=== PATIENT | male | born 1985 | race Caucasian/White ===

== ENCOUNTER 2019-12-30 09:23 | Emergency (ER) | payer OTHER, SELFPAY ==
--- NOTE | 2019-12-30 | ECG_ITS ---
Test Reason : HEADACHE Blood Pressure : / mmHG Vent. Rate : 069 BPM Atrial Rate : 069 BPM P-R Int : 148 ms QRS Dur : 098 ms QT Int : 392 ms P-R-T Axes : 046 -23 -08 degrees QTc Int : 420 ms Normal sinus rhythm Nonspecific T wave abnormality Abnormal ECG When compared with ECG of 24-JUL-2019 16:52, No significant change was found Referred By: Carrie Velásquez Electronically Signed By:MOLINA MULLINS MD
--- NOTE | 2019-12-30 09:43 | CT_ITS ---
EXAMINATION: CT HEAD WITHOUT CONTRAST CLINICAL INFORMATION: Headache for 2 weeks. Age 34. COMPARISON: CT head noncontrast 04/11/2012. TECHNIQUE: Contiguous axial imaging was performed from the skull base to vertex without intravenous administration of contrast. Additional 2-D coronal and sagittal reformatted images are generated on the CT workstation and uploaded to PACS. This CT examination was performed using dose optimization techniques as appropriate, variously including the following: *Automated exposure control *Adjustment of mA and/or kV according to patient size (this includes techniques or standardized protocols for targeted exams where dose is matched to indication/reason for exam; i.e. extremities or head) *Use of iterative reconstruction technique DLP: 825 mGy-cm FINDINGS: There is no intracranial hemorrhage, hematoma, or extra-axial fluid collection. The ventricles are normal in size. There is no hydrocephalus, edema, or mass effect. The lam-white matter differentiation appears symmetric. There is no visible acute territorial infarct or mass lesion. There are no significant changes from prior study 2012. The calvarium appears intact. There is no pneumocephalus or orbital emphysema. The visualized sinuses and middle ears and mastoid air cells show no significant mucosal thickening. There are no air-fluid levels. CT/CT head/brain wo con IMPRESSION: Normal study.
--- NOTE | 2019-12-30 09:50 | ED_ITS ---
HPI - Headache General Chief Complaint: Headache Stated Complaint: Migraine Time Seen by Provider: 12/30/19 09:39 Source: patient Mode of arrival: ambulatory Limitations: no limitations History of Present Illness HPI Narrative: Patient presents to ED for headache that has been occurring for the past 2 weeks. Patient states having history headaches ( migraines) since coming from the [place] 10 years ago. Patient states headache not improving with amitriptyline which he takes for his headache. Patient denies any neck stiffness, fever, chills, night sweats, loss of vision, or blurry vision. Patient denies any eye pain. Related Data Home Medications Medication Instructions Recorded Confirmed amitriptyline 10 mg PO BEDTIME 12/29/19 12/29/19 duloxetine 20 mg PO DAILY 12/29/19 12/29/19 famotidine 20 mg PO DAILY PRN 12/29/19 12/29/19 lactase [Lactaid] 3,000 unit PO TID PRN 12/29/19 12/29/19 Previous Rx's Medication Instructions Recorded [id number]-gpgcvqoxluxty-kvry 1 cap PO Q4-6H PRN #20 cap 12/30/19 [Fioricet] naproxen 500 mg PO BID PRN #20 tab 12/30/19 Allergies Allergy/AdvReac Type Severity Reaction Status Date / Time No Known Allergies Allergy Unverified 12/29/19 15:54 Review of Systems Review of Systems: Yes all other systems are reviewed and are negative Constitutional: Constitutional: Reports as per HPI, Reports no additional constitutional complaints and Reports headache(s) Eyes: Eyes: Reports as per HPI and Reports no additional eye complaints ENT: Reports system reviewed and no additional complaints, except as documented, Reports as per HPI and Reports headache(s) Cardiovascular: Cardiovascular: Reports as per HPI and Reports no additional cardiovascular complaints Respiratory: Respiratory: Reports as per HPI and Reports no additional respiratory complaints Gastrointestinal: Gastrointestinal: Reports as per HPI and Reports no additional gastrointestinal complaints Genitourinary: Genitourinary: Reports no additional male genitourinary complaints and Reports as per HPI Musculoskeletal: Musculoskeletal: Reports no additional musculoskeletal complaints and Reports as per HPI Neurologic: Reports system reviewed and no additional complaints, except as documented, Reports as per HPI and Reports headache(s) Psychiatric: Psychiatric: Reports no additional psychiatric complaints and Reports as per HPI [facility] Past Medical History Medical History (Updated 12/30/19 @ 13:04 by MARCE Boswell) Depression GERD (gastroesophageal reflux disease) IBS (irritable bowel syndrome) Lactose intolerance PTSD (post-traumatic stress disorder) Surgical History History of open reduction and internal fixation (ORIF) procedure Hx of appendectomy Hx of tonsillectomy Social History Social History Smoking Status: Former smoker Physical Exam Vital Signs: Vital Signs: Last Vital Signs Temp 98.3 F 12/30/19 10:43 Pulse 77 12/30/19 12:16 Resp 16 12/30/19 12:16 BP 112/73 12/30/19 12:16 Pulse Ox 95 12/30/19 12:16 Body Mass Index 41.5 Const: General: cooperative, healthy appearing, comfortable, no acute distress, well developed, alert and awake Orientation/consciousness: patient oriented x3 HENMT: Head: Yes normal to inspection, Yes No palpable skull fracture present, Yes atraumatic, No Carmona's sign, No contusion, No laceration, No palpable skull fracture, No raccoon eyes, No scalp lesion, No scalp tenderness and No Temporal artery tenderness present Eyes: Other: positive for photophobia. Neck: Neck: Yes normal visual inspection, Yes full ROM, Yes no lymphadenopathy, Yes no meningeal signs, Yes trachea midline and No tender Chest: Chest palpation & inspection: normal inspection of the chest, normal palpation of entire chest wall and no localized rib tenderness Resp: Effort & Inspection: normal respiratory effort and able to speak in complete sentences Auscultation: clear to auscultation bilaterally Cardio: Jugular venous distension: no JVD Heart sounds: S1 normal heart so und present and S2 normal heart sound present GI: Inspection: Yes normal to inspection and No abdominal wall ecchymosis Palpation (GI): Soft to palpation, not firm, nontender and no guarding : General: No CVA tenderness and Yes no CVA tenderness Back/Spine/Pelvis: Back: no CVA tenderness, No CVA tenderness and No back tenderness Skin: General skin exam: no rashes or lesions noted Neuro: General: patient oriented x3, no meningeal signs and CN's II-XI intact bilaterally Cranial nerves: Yes CN's II-XII intact bilaterally Extrem: General: Yes normal to inspection and Yes full ROM Psych: Appearance: grossly normal, well kempt and not disheveled Course Course Course Narrative: History physical exam indicates small a migraine exacerbation. With headache and photophobia. Negative for any neck stiffness, or meningeal signs to indicate meningitis. It has been occurring for the past 2 weeks. Will give Fioricet, Benadryl, Reglan, and IV fluids. Patient will be sent for head CT scan patient states pain is worse in the past 3 days. Reevaluation(s) Reevaluation #1: Patient head CT came back negative for any intracranial pathology. Patient headache and photophobia resolved after receiving migraine cocktail in the ED. History physical exam does not indicate meningitis. patient's vital signs are stable, no white blood cell count, and and patient is not toxic appearing. NO concern for aseptic meningitis, Due to headache resolving and patient denies history of HIV or herpes. Not suspecting with glaucoma Time: 13:00 Reevaluation #2: EKG was done on patient in error by medical staff. EKG was not indicated. I am not thinking patient have a cardiac event. But due to staff member performed EKG it was officially ordered. In comparison to prior EKG in July there was no EKG changes. No troponin indicated. Time: 13:01 MDM - Headache MDM Narrative Medical decision making narrative: migraine Lab Data Result diagrams: 12/30/19 10:56 12/30/19 10:56 Labs: Lab Results 12/30/19 12/30/19 12/30/19 Range/Units 10:56 10:56 10:56 WBC 9.2 (4.8-10.8) X10*3/uL RBC 4.73 (4.60-5.80) X10*6/uL Hgb 13.5 L (14.0-18.0) g/dl Hct 42.4 (42-52) % MCV 89.6 (80-98) fL MCH 28.5 (27.0-33.0) pg MCHC 31.8 (31.0-36.0) g/dl RDW 11.9 (11.0-16.0) % Plt Count 316 (160-400) X10*3/uL MPV 10.2 (9.4-12.4) fL Immature Gran % (Auto) 0.3 (0.0-0.4) % Neut % (Auto) 57.3 (45-73) % Lymph % (Auto) 30.5 (20-40) % [facility] % (Auto) 8.5 (2-11) % Eos % (Auto) 3.0 (0-4) % Baso % (Auto) 0.4 (0-2) % Lymph # (Auto) 2.8 (1.2-4.9) X10*3/uL [facility] # (Auto) 0.8 (0.1-1.2) X10*3/uL Eos # (Auto) 0.3 (0.0-0.4) X10*3/uL Baso # (Auto) 0.0 (0.0-0.2) X10*3/uL Abs Immat Gran (auto) 0.03 (0.00-0.03) X10*3/uL Absolute Neuts (auto) 5.3 (2.0-8.3) X10*3/uL Absolute Nucleated RBC 0.000 (0.0-0.012) X10*3/uL Nucleated RBC % (auto) 0.0 (0.0-0.2) /100WBC PT 12.3 (10.8-13.0) SEC INR 1.0 (0.9-1.1) APTT 39.0 H (24.1-38.0) SEC Sodium 135 (135-145) mmol/L Potassium 4.1 (3.3-5.1) mmol/l Chloride 102 (96-108) mmol/L Carbon Dioxide 25 (22-29) mmol/L Anion Gap 12 (12-20) BUN 13 (9-16) mg/dL Creatinine 1.07 (0.5-1.4) mg/dL Estim Creat Clear Calc 133.9 Estimated GFR > 60 Random Glucose 112 (60-115) mg/dL Calcium 9.2 (8.4-10.2) mg/dL Total Bilirubin 0.4 (0.0-1.0) mg/dL AST 16 (5-37) U/L ALT 21 (0-40) U/L Alkaline Phosphatase 75 (39-117) U/L Total Protein 7.3 (6.5-8.0) g/dL Albumin 4.1 (3.5-5.0) g/dL ECG Data Interpretation: normal sinus rhythm. Ventricular rate 69. Pr interval 148. QRS 98 Discharge Plan Discharge Clinical Impression: Migraine Patient Disposition: Home, Self-Care Instructions: Migraine Headache (ED) Additional Instructions: return to the ED immediately for worsening headache, neck stiffness, loss of vision, fever, chills, rash, slurred speech, loss of vision, paralysis, or any other concerning symptoms. Prescriptions: New jfrrajmcxl-lpqewqbrhxgpg-uiek [Fioricet] 50-300-40 mg capsule 1 cap PO Q4-6H PRN (Reason: pain) Qty: 20 RF: 0 naproxen 500 mg tablet 500 mg PO BID PRN (Reason: pain) Qty: 20 RF: 0 No Action famotidine 20 mg Tablet 20 mg PO DAILY PRN (Reason: Acid Reflux) RF: 0 amitriptyline 10 mg Tablet 10 mg PO BEDTIME RF: 0 lactase [Lactaid] 3,000 unit Tablet 3,000 unit PO TID PRN (Reason: Digestion) RF: 0 duloxetine 20 mg Capsule,Delayed Release(Dr/Ec) 20 mg PO DAILY RF: 0 Referrals: Tanya Cat MD [Primary Care Provider] - 2 days ( Migraine exacerbation.) Du Domingo MD [Physician] - 2 days ( migraine exacerbation.) Stand Alone Forms: Work/School Release Interventions: ED Discharge Assessment Last Done: 12/30/19 13:16 Discharge Date/Time: 12/30/19 13:20 Print Language: Mongolian
[2019-12-30 10:43] VITALS: BP 135/82; PULSE 81; RESP 20; TEMP 36.8; O2SAT 95; BMI 41.5
[2019-12-30] MEDS: 0.9 % Sodium Chloride 1,000 ML 999 ML IVCONT (10:57)
[2019-12-30] MEDS: diphenhydrAMINE HCL 50 MG/ML VIAL IVPUSH (10:58)
[2019-12-30] MEDS: Metoclopramide HCl 10 MG/2 ML VIAL IVPUSH (10:58)
[2019-12-30 11:00] LABS: MANUAL DIFF FLAG NO
[2019-12-30 11:02] LABS: Basophils Percent Auto 0.4 % (0-2); Eosinophils Absolute Auto 0.3 X10*3/uL (0.0-0.4); Hematocrit 42.4 % (42-52); Hemoglobin 13.5 g/dl (14.0-18.0); Imm Gran Abs Auto 0.03 X10*3/uL (0.00-0.03); Imm Gran Pct Auto 0.3 % (0.0-0.4); Lymphocytes Absolute Auto 2.8 X10*3/uL (1.2-4.9); Lymphocytes Percent Auto 30.5 % (20-40); Mean Corpuscular HGB Conc 31.8 g/dl (31.0-36.0); Mean Corpuscular Hemoglobin 28.5 pg (27.0-33.0); Mean Corpuscular Volume 89.6 fL (80-98); Mean Platelet Volume 10.2 fL (9.4-12.4); Monocytes Absolute Auto 0.8 X10*3/uL (0.1-1.2); Monocytes Percent Auto 8.5 % (2-11); Neutrophils Absolute Auto 5.3 X10*3/uL (2.0-8.3); Neutrophils Percent Auto 57.3 % (45-73); Platelet Count 316 X10*3/uL (160-400); Red Blood Count 4.73 X10*6/uL (4.60-5.80); Red Cell Distribution Width 11.9 % (11.0-16.0); White Blood Count 9.2 X10*3/uL (4.8-10.8)
[2019-12-30 11:06] LABS: Prothrombin Time 12.3 SEC (10.8-13.0)
[2019-12-30] MEDS: Ketorolac Tromethamine 30 MG/ML VIAL IVPUSH (11:21)
[2019-12-30 11:40] LABS: Alanine Aminotransferase 21 U/L (0-40); Albumin Level 4.1 g/dL (3.5-5.0); Alkaline Phosphatase 75 U/L (39-117); Anion Gap 12 (12-20); Aspartate Amino Transferase 16 U/L (5-37); Bilirubin Total 0.4 mg/dL (0.0-1.0); Blood Urea Nitrogen 13 mg/dL (9-16); Calcium 9.2 mg/dL (8.4-10.2); Carbon Dioxide 25 mmol/L (22-29); Chloride 102 mmol/L (96-108); Creatinine Clr Calc Pharmacy 133.9; Estimated Glomerular Filt Rate > 60; Glucose Random 112 mg/dL (60-115); Potassium 4.1 mmol/l (3.3-5.1); Sodium 135 mmol/L (135-145); Total Protein 7.3 g/dL (6.5-8.0)
[2019-12-30 12:16] VITALS: BP 112/73; PULSE 77; RESP 16; O2SAT 95
== END 2019-12-30 13:20 | disposition home or self-care (01) ==
PROVIDERS: Physician Assistant; Emergency Provider Emergency Medicine; PCP Internal Medicine
DX: G43.909 Migraine, unspecified, not intractable, without status migrainosus (principal); Z79.899 Other long term (current) drug therapy
CPT/HCPCS: 36415; 70450; 80053; 85025; 85610; 85730; 93005; 96361; 96374; 96375; 99284; J1200; J1885; J2765

== ENCOUNTER 2019-12-31 10:12 | Outpatient (REF) | payer OTHER, SELFPAY ==
--- NOTE | 2019-12-31 10:30 | MR_ITS ---
MRI OF THE BRAIN WITHOUT IV CONTRAST INDICATION: Severe constant headache. COMPARISON: Head CT 12/30/2019. TECHNIQUE: Multiplanar multisequence MR imaging of the brain was obtained without IV contrast. FINDINGS: There is no hydrocephalus, extra-axial surface collection, or herniation. No parenchymal signal abnormality. The major flow voids at the skull base are preserved. There is no acute infarct on diffusion-weighted imaging. There is no intracranial hemorrhage on the gradient recalled echo acquisition. The midline structures are normal. The cerebellar tonsils are normally positioned. The cerebellum and brainstem are normal. The craniocervical junction is normal. Osseous marrow signal intensity is homogenous. The visualized soft tissues are unremarkable. There are retention cysts within the maxillary sinuses bilaterally and there is mild mucosal thickening throughout the ethmoid air cells bilaterally. MR/MR head/brain wo con IMPRESSION: Unremarkable noncontrast MRI of the brain.
== END 2019-12-31 10:13 | disposition home or self-care (01) ==
LOC: HO.MRI 10:12
PROVIDERS: Visit Provider Internal Medicine
DX: R51.9 Headache, unspecified (principal)
CPT/HCPCS: 70551

== ENCOUNTER 2019-12-31 11:25 | Outpatient (REF) | payer OTHER, SELFPAY ==
[2019-12-31 14:28] LABS: Alanine Aminotransferase 23 U/L (0-40); Albumin Level 4.2 g/dL (3.5-5.0); Alkaline Phosphatase 70 U/L (39-117); Amylase 71 U/L (28-100); Aspartate Amino Transferase 17 U/L (5-37); Bilirubin Direct < 0.2 mg/dL (0.0-0.5); Bilirubin Total 0.6 mg/dL (0.0-1.0); Total Protein 7.5 g/dL (6.5-8.0)
[2019-12-31 14:52] LABS: T4 Thyroxine 7.2 ug/dL (4.5-12.0); Thyroid Stimulating Hormone 1.41 uIU/mL (0.32-4.0)
[2020-01-01 13:01] LABS: Transglutaminase Ab IgG 3 U/mL; Transglutaminase IgA 1 U/mL
[2020-01-01 22:03] LABS: Immunoglobulin A 402 mg/dL (47-310)
[2020-01-01 22:22] LABS: Gliadin Deamidated IgA Ab 5 Units; Gliadin Deamidated IgG Ab 6 Units
[2020-01-05 13:57] LABS: Endomysial IgA Antibody Negative (Negative)
== END 2019-12-31 11:26 | disposition home or self-care (01) ==
LOC: HO.10HDL 11:25
PROVIDERS: Visit Provider Internal Medicine
DX: R19.7 Diarrhea, unspecified (principal); K21.9 Gastro-esophageal reflux disease without esophagitis; R10.9 Unspecified abdominal pain
CPT/HCPCS: 36415; 80076; 82150; 82784; 83516; 84436; 84443; 86255; 86256

== ENCOUNTER 2020-01-04 10:25 | Day surgery (SDC) | payer OTHER, SELFPAY ==
[2019-12-29 16:01] VITALS: BMI 41.5
--- NOTE | 2019-12-31 15:37 | HO.ANESPROP2 ---
Documented by User: Leyla Boo 12/31/19 15:38 HPI - Anesthesia Eval Consult details Narrative: 34yp M for Upper Endoscopy and Colonoscopy [facility] Past Medical History Medical History Depression GERD (gastroesophageal reflux disease) IBS (irritable bowel syndrome) Lactose intolerance PTSD (post-traumatic stress disorder) Surgical History Surgical History History of open reduction and internal fixation (ORIF) procedure Hx of appendectomy Hx of tonsillectomy Social History Social History Are you a primary post acute care registered nurse to a significant other at home: No Do you presently have visiting nurse or other home services: No Smoking Status: Former smoker Smoking Quit Date: 5 yrs ago Use of substances other than those prescribed or required for medical reasons: No Have you been hit, kicked, punched, or otherwise hurt by someone within the past year? If so, by whom?: No Advance Directives: No Advance Directives Information Provided: No Advance Directives on File: No Recently lost weight without trying: No Meds Allergies Allergy/AdvReac Type Severity Reaction Status Date / Time No Known Allergies Allergy Unverified 12/29/19 15:54 Home Medications Medication Instructions Recorded Confirmed Type amitriptyline 10 mg PO BEDTIME 12/29/19 12/29/19 History duloxetine 20 mg PO DAILY 12/29/19 12/29/19 History famotidine 20 mg PO DAILY PRN 12/29/19 12/29/19 History lactase [Lactaid] 3,000 unit PO TID PRN 12/29/19 12/29/19 History Exam Exam Date and Time: December 31, 2019 1537 Height,Weight and Vital Signs: Height 5 ft 10 in Weight 131.542 kg Pertinent Lab Results Pertinent Lab Results: Laboratory Tests 12/30/19 12/30/19 10:56 10:56 WBC 9.2 Hgb 13.5 L Hct 42.4 Plt Count 316 Sodium 135 Potassium 4.1 Chloride 102 BUN 13 Creatinine 1.07 Assessment and Plan Assessment Anesthesia Assessment: Chart Reviewed Documented by User: Farideh Terrence 01/04/20 10:58 [facility] Past Medical History Medical History Depression GERD (gastroesophageal reflux disease) IBS (irritable bowel syndrome) Lactose intolerance PTSD (post-traumatic stress disorder) Surgical History Surgical History History of open reduction and internal fixation (ORIF) procedure Hx of appendectomy Hx of tonsillectomy Social History Social History Are you a primary post acute care registered nurse to a significant other at home: No Do you presently have visiting nurse or other home services: No Smoking Status: Former smoker Smoking Quit Date: 5 yrs ago Use of substances other than those prescribed or required for medical reasons: No Have you been hit, kicked, punched, or otherwise hurt by someone within the past year? If so, by whom?: No Advance Directives: No Advance Directives Information Provided: No Advance Directives on File: No Recently lost weight without trying: No Meds Allergies Allergy/AdvReac Type Severity Reaction Status Date / Time No Known Allergies Allergy Unverified 12/29/19 15:54 Home Medications Medication Instructions Recorded Confirmed Type amitriptyline 10 mg PO BEDTIME 12/29/19 12/29/19 History duloxetine 20 mg PO DAILY 12/29/19 12/29/19 History famotidine 20 mg PO DAILY PRN 12/29/19 12/29/19 History lactase [Lactaid] 3,000 unit PO TID PRN 12/29/19 12/29/19 History Exam Airway Mallampati Class: II (Sip water with medicine) TM Dist: >3cm Neck ROM: Full Heart: RRR Lungs: CTA BL Assessment and Plan Assessment Anesthesia Assessment: Anesthesia Plan Discussed and Chart Reviewed Final Anesthetic Review NPO: Yes (Sip water with meds) ASA Class: III Final Preanesthetic Review: No Changes in Pt Med Stat, Meds/Allgs Chart Reviewed, Consent Obtained/Reviewed and Anes Risks/Benef Reviewed Patient Risk: Intermediate Procedure Risk: Intermediate Anesthetic Plan Anesthetic Plan: MAC: Disposition: Standard PACU
[2020-01-04 10:43] VITALS: BP 115/83; PULSE 100; RESP 18; TEMP 36.4; O2SAT 95
[2020-01-04] MEDS: Lactated Ringers 1,000 ML 100 ML IVCONT (10:55)
[2020-01-04 11:09] VITALS: BP 115/83; PULSE 100; RESP 18; TEMP 36.4; O2SAT 95
[2020-01-04 12:39] VITALS: BP 104/68; PULSE 95; RESP 16; TEMP 37.2; O2SAT 6
--- NOTE | 2020-01-04 12:49 | PM.OP ---
Brief Operative Note Date of Service: 01/04/20 Pre-op diagnosis: Diarrhea, GERD, Hematochezia Post-op diagnosis: other (Erosive esophagitis, hiatal hernia, gastritis, R/O celiac disease, R/O microscopic colitis, Internal hemorrhoids) Procedure: EGD with biopsies and Colonoscopy to the cecum with biopsies Surgeon: Hilario Michelle Anesthesia: MAC Estimated blood loss (mL): 4.0 Pathology: other (A. Gastric antrum B. EG Junction at 35cm C. Descending duodenum D. Ascending colon E. Descending colon) Condition: stable Disposition: PACU
[2020-01-04 12:54] VITALS: BP 108/75; PULSE 84; RESP 17; TEMP 37.2; O2SAT 95
[2020-01-04 13:09] VITALS: BP 108/75; PULSE 84; RESP 17; TEMP 37.2; O2SAT 95
--- NOTE | 2020-01-04 13:35 | OP_ITS ---
SURGEON: Hilario Michelle MD INDICATIONS: Full consent has been obtained from him for this, including risks of bleeding and perforation. PREOPERATIVE DIAGNOSIS: POSTOPERATIVE DIAGNOSIS: PROCEDURE PERFORMED: Esophagogastroduodenoscopy with biopsies and colonoscopy to the cecum and terminal ileum with biopsies. ESTIMATED BLOOD LOSS: COMPLICATIONS: ANESTHESIA: Monitored anesthesia care. ASSISTANTS: SPECIMENS: PREOPERATIVE DIAGNOSES: Gastroesophageal reflux, diarrhea, and hematochezia. POSTOPERATIVE DIAGNOSES: Gastroesophageal reflux, diarrhea, and hematochezia, hiatal hernia, erosive esophagitis, gastritis, rule out celiac disease, rule out microscopic colitis, internal hemorrhoids. DESCRIPTION OF PROCEDURE: The patient was placed in the left lateral decubitus position. The Olympus video gastroscope was passed in the posterior oropharynx and upper esophagus under direct vision. The scope was passed slowly into the distal esophagus. The gastroesophageal junction appeared at 35 cm. There was evidence of erosive esophagitis and slight irregularity, but no definitive evidence of Mcneal's mucosa. There was no sign of any stricture, ulceration, nor mass. There was a moderate-sized hiatal hernia. The scope was advanced to pylorus and duodenum cannulated to the descending portion. The duodenum including the bulb appeared normal without mass or ulceration. Biopsies were obtained from the 2nd and 3rd portions of duodenum. The scope was withdrawn back into the stomach. The gastric antrum had areas of gastritis, edema, and some friability. There were no erosions or ulceration. There was good peristalsis. The scope was retroflexed visualizing the proximal stomach carefully, which appeared normal, without any sign of mass or ulceration. The scope was straightened. Biopsies were obtained from the gastric antrum. The scope was withdrawn back in the esophagus. Biopsies were obtained at the EG junction at 35 cm. Proximal to this, the esophageal mucosa appeared normal. The scope was withdrawn from the patient. He was turned around for the colonoscopy. The digital rectal exam revealed no abnormalities. The Olympus video pediatric colonoscope was entered into the rectum and advanced easily to the cecum. Once in the cecum, I did identify normal-appearing cecal pouch with appendiceal orifice and a normal-appearing ileocecal valve. The terminal ileum was cannulated and appeared normal. The scope was withdrawn back in the colon. The entire cecum and ileocecal valve appeared normal. The scope was slowly withdrawn assessing all mucosal surfaces carefully. Preparation was excellent. I did not visualize any sign of polyps, colitis, nor angiodysplasia. I did obtain random biopsies in the ascending and descending colon. In the rectum, scope was retroflexed visualizing some internal hemorrhoids, but no other pathology. The rectal mucosa appeared normal. The scope was straightened out and withdrawn from the patient. He tolerated both procedures well and was returned to the recovery area in stable condition. IMPRESSION: 1. Erosive esophagitis. 2. Moderate-sized hiatal hernia. 3. Gastritis. 4. Rule out celiac disease. 5. Rule out microscopic colitis. 6. Internal hemorrhoids. PLAN: The results of biopsies will be checked. He has been advised to continue using omeprazole daily, although given today's findings, I have advised him to use it twice a day for 1 month and then back to once a day as long as that keeps his reflux symptoms stable. He will continue dicyclomine for presumed irritable bowel syndrome. He was advised not to use any aspirin and NSAIDs for at least a week. He did have recent laboratories including CBC, thyroid, liver profile, and pancreatic enzymes, which were normal. Celiac disease serologies are negative as well. He was advised to see me again in several months for a followup visit. MD LENA Spring/JASMIN / [id number]
== END 2020-01-04 13:56 | disposition home or self-care (01) ==
PROVIDERS: PCP Internal Medicine; Visit Provider Internal Medicine
PROC: (CPT 43239; principal; 2020-01-04 11:30)
DX: K21.9 Gastro-esophageal reflux disease without esophagitis (principal); K29.00 Acute gastritis without bleeding; K22.10 Ulcer of esophagus without bleeding; K44.9 Diaphragmatic hernia without obstruction or gangrene; K64.8 Other hemorrhoids; E73.9 Lactose intolerance, unspecified; Z79.899 Other long term (current) drug therapy
CPT/HCPCS: 43239; 45380; 88305; 88342